=== PATIENT | female | born 1945 | race Caucasian/White ===

== ENCOUNTER 2017-04-15 13:31 | Emergency (ER) | payer MEDICARE, OTHER ==
[2017-04-15 14:30] LABS: #Lymphocytes 1.2 thou/uL (1.20-3.40); #Monocytes 0.3 thou/uL (0.11-0.59); #Neutrophils 1.5 thou/uL (1.40-6.50); %Basophils 0.2 % (0.0-1.0); %Eosinophils 1.3 % (0.0-10.0); %Lymphocytes 38.4 % (21.0-51.0); %Monocytes 11.2 % (0.0-10.0); Hematocrit 38.7 % (36.0-47.0); Mean Platelet Volume 7.2 fL (7.4-10.4); Red Blood Cell (RBC) Count 4.24 mill/uL (4.20-5.40)
[2017-04-15 14:50] LABS: ALT (SGPT) 14 U/L (8-55); AST (SGOT) 17 U/L (5-34); Alkaline Phosphatase 70 U/L (40-150); Anion Gap 12 mmol/L (10-20); BUN (Urea Nitrogen) 12 mg/dL (9.8-20.1); Bilirubin, Total 0.5 mg/dL (0.2-1.2); CK (CPK) 86 U/L (29-168); Calc. Creatinine Clearance 0 mL/min (70-130); Calcium 9.5 mg/dL (7.8-10.44); Carbon Dioxide 27 mmol/L (23-31); Chloride 104 mmol/L (98-107); Estimated GFR-MDRD Greater than 90; Globulin 2.9 g/dL (2.4-3.5); Protein, Total 7.1 g/dL (6.0-8.3)
[2017-04-15 14:55] LABS: Troponin I Less than 0.010 ng/mL (< 0.028)
--- NOTE | 2017-04-15 15:31 | RAD ---
CHEST ONE VIEW 04/15/17 HISTORY: Emergency exam. COMPARISON: Chest two view 08/26/16. FINDINGS: Lungs are without focal air space consolidation, pneumothorax or effusion. The patient is mildly rota xander to the left. No focal osseous abnormality. IMPRESSION: No acute intrathoracic abnormality. POS: [facility]
[2017-04-15] MEDS ORDERED: Ibuprofen 800 MG TAB ONE (16:32)
== END 2017-04-15 16:45 | disposition home or self-care (01) ==
LOC: ERS 13:31
DX: M75.52 Bursitis of left shoulder (principal); Z79.899 Other long term (current) drug therapy
CPT/HCPCS: 71010; 80053; 82553; 83880; 84484; 85025; 93005

== ENCOUNTER 2017-05-05 12:41 | Outpatient (CLI) | payer MEDICARE, OTHER ==
[~2017-05-05 12:41] MED LIST: Gadobenate Dimeglumine 529 MG/1 ML (20ML VIAL) ONE
--- NOTE | 2017-05-05 16:02 | MRI ---
MRI LUMBAR SPINE WITH AND WITHOUT CONTRAST: Date: 05-05-17 History: Lumbar radiculopathy. Patient has chronic low back pain for last three years. History of MRS A infection after prior laminectomy. Contrast: 12 ml MultiHance IV contrast. Comparison: 08-18-09 FINDINGS: Within the superior pole right kidney there is a decreased T1 weighted signal intensity structure whi ch does not represent enhancement, likely representing a cyst. There is an increased T2 weighted sign al cystic structure seen in the posterior aspect of the posterior segment right hepatic lobe likely r elated to small cyst. This was present on CT exam on 08-30-14. Retroperitoneal structures otherwise hav e a normal CT appearance. There has been interval post-surgical changes of the lumbar spine with posterior fusion now present a t the L4-5 level with metallic susceptibility artifact related to bipedicular screws and posterior ro ds transfixing the L4-5 level. The degree of anterolisthesis of L4 on L5 is stable from prior exam. T he previously noted enhancement posterior to this level on the prior exam in 2009 is not seen on this exam. No abnormal enhancement or edema is appreciated on post contrast imaging and fluid sensitive s equences. There are endplate degenerative changes at the L4-5 and L5-S1 levels. L1-2 and L2-3: No significant disc bulge or disc herniation. Central spinal canal and neural foramina are patent at these levels. L3-4: There is mild disc osteophyte complex at this level with prominent facet hypertrophic changes a nd ligamentous thickening. Findings result in severe narrowing of the central spinal canal with mild right and mild to moderate left sided neural foraminal narrowing. L4-5: Laminectomy defects are present at this level. Again noted is grade I anterolisthesis of L4 on L5. Previously noted right sided synovial cyst at this level is no longer present. ==== related to th e anterolisthesis, there is mild to moderate narrowing of the central spinal canal. The right neural foramen is patent, but there is suggestion of moderate left sided neural foraminal narrowing. L5-S1: There is loss of intervertebral disc height. Mild broad based disc osteophyte complex is prese nt with slight effacement of the ventral aspect of the thecal sac. There is minimal encroachment on e ach neural foramen similar to the prior study. 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 IMPRESSION: 1. Post-surgical changes at the L4-5 level with interval post-surgical change since the prior study r elated to posterior fusion with bipedicular screws and posterior rods. The prominent enhancing scar t issues noted on the prior exam at this level is not appreciated on the current study. 2. Stable degree of Grade I anterolisthesis of L4 on L5. 3. Degenerative changes within the cervical spine. There has been progression in degenerative changes at the L3-4 level, primarily related to the facet hypertrophic changes and ligamentous thickening re sulting in moderate to severe narrowing of the central spinal canal at this level with mild to modera te left sided neural foraminal narrowing. 4. Findings suggestive of right renal cysts as well as right hepatic lobe cyst. POS: [facility]
== END 2017-05-05 12:42 | disposition home or self-care (01) ==
LOC: SCSMRI 12:41
PROVIDERS: ATTEND Neurological Surgery
DX: M54.16 Radiculopathy, lumbar region (principal); M43.10 Spondylolisthesis, site unspecified; M47.892 Other spondylosis, cervical region; M47.896 Other spondylosis, lumbar region; Z98.1 Arthrodesis status
CPT/HCPCS: 72158; A9579

== ENCOUNTER 2017-06-29 15:04 | Outpatient (CLI) | payer MEDICARE, OTHER ==
--- NOTE | 2017-06-29 17:32 | RAD ---
TWO VIEW CHEST: History: Flu like symptoms. Comparison: One view chest, 04-15-17 FINDINGS: Linear stranding in the lungs appear stable. No evidence of focal infiltrate or effusion. Heart size is normal. IMPRESSION: No acute process identified. POS: [facility]
== END 2017-06-29 15:05 | disposition home or self-care (01) ==
LOC: SCSRAD 15:04
PROVIDERS: ATTEND Nurse Practitioner Family
DX: R68.89 Other general symptoms and signs (principal)
CPT/HCPCS: 71046

== ENCOUNTER 2017-09-23 16:38 | Outpatient (CLI) | payer MEDICARE, OTHER ==
--- NOTE | 2017-09-23 17:03 | RAD ---
TWO VIEWS OF THE CHEST: 09/23/17 COMPARISON: 06/29/17 HISTORY: Productive cough for six days; bronchitis. FINDINGS: Two views of the chest show normal sized cardiomediastinal silhouette. There is no evidence of consol idation, mass, or pleural effusion. Degenerative changes are seen in the spine. Hardware is seen in t he lumbar spine. IMPRESSION: No evidence of acute cardiopulmonary disease. POS: [facility]
== END 2017-09-23 16:39 | disposition home or self-care (01) ==
LOC: SCSRAD 16:38
PROVIDERS: ATTEND Family Medicine
DX: J40 Bronchitis, not specified as acute or chronic (principal)
CPT/HCPCS: 71046